=== PATIENT | female | born 1970 | race Caucasian/White ===

== ENCOUNTER 2018-01-15 13:12 | Emergency (ER) | payer OTHER ==
[~2018-01-15] VITALS: Ht 167.6 cm; Wt 70.8 kg
[~2018-01-15 13:12] MED LIST: ASPIR 8181 M1 PO; ASPIRIN BUFFER325 MG; BACTRIM,SEPT1 TABLET PO; CELEXA20 MG PO; CLEOCIN300 MG PO; EFFEXOR25 MG PO; Ecotrin PO; FLEXERIL5 MG PO; FLUOXETINE HCL40 MG PO; HYZAAR 50-121 TABLET PO; LOSARTAN POTASS50 MG PO; LOSARTAN-HCTZ1 EAC2; LOVASTATIN20 MG PO; MOTRIN IB200 MG PO; NORVASC5 MG PO; OXYCODONE-ACET1 EACH; PERCOCET 5/31 TABLET PO; PROZAC20 MG PO; PROzac PO; TESSALON200 MG PO; Tums,OsCal PO; VICODIN,LORT1 TABLET PO; ZITHROMAX250 MG PO; ZOFRAN ODT4 MG PO
[2018-01-15] MEDS ORDERED: ATIVAN0.5 MG PO (15:52)
[2018-01-15 16:12] VITALS: BP 136/94
== END 2018-01-15 16:14 | disposition home or self-care (01) ==
LOC: EME 13:12
DX: F41.9 Anxiety disorder, unspecified (principal); F32.9 Major depressive disorder, single episode, unspecified; E78.5 Hyperlipidemia, unspecified; I10 Essential (primary) hypertension; Z88.5 Allergy status to narcotic agent; Z87.891 Personal history of nicotine dependence; Z88.8 Allergy status to other drugs, medicaments and biological substances
CPT/HCPCS: 99281; 99283